=== PATIENT | male | born 1980 | race African-American/Black ===

== ENCOUNTER 2021-09-16 17:08 | Emergency (ER) | payer SELFPAY ==
[~2021-09-16] VITALS: Ht 182.9 cm; Wt 77.1 kg
--- NOTE | 2021-09-16 17:09 | NUR ---
AYUSH TEIXEIRA VIA GURNEY TO BED 02.
[2021-09-16 17:15] VITALS: BP 150/90
[2021-09-16] MEDS ORDERED: NACL 0.9% 1,000 ML IV ONE (17:20)
--- NOTE | 2021-09-16 18:20 | NUR ---
41 Y/O MALE BIBA. PT IS HOMELESS FOUND ON [address] AND [address] ON THE FLOOR. PT REFUSES TO ANSWER QUESTIONS, BELIEVED TO BE ALOC. UNKNOWN PT BASELINE. UNKOWN LAST WELL. VSS. PMH: UNABLE TO OBTAIN MEDS: UNABLE TO OBTAIN NKA
--- NOTE | 2021-09-16 18:42 | NUR ---
PT TAKEN TO CT VIA MIKE
--- NOTE | 2021-09-16 19:20 | NUR ---
Pt report given to RUDI MACKENZIE. Transfer of care at this time.
[2021-09-16 20:02] LABS: BASOPHILS # (AUTO) 0.1 K/uL (0.00-0.22); BASOPHILS % (AUTO) 0.7 % (0.0-2.0); EOSINOPHILS % (AUTO) 0.7 % (0.0-4.0); HEMATOCRIT 45.4 % (36-52); HEMOGLOBIN 14.9 g/dL (12.0-18.0); LYMPHOCYTES # (AUTO) 0.9 K/uL (2.0-11.5); LYMPHOCYTES % (AUTO) 13.4 % (20.5-51.1); MEAN CORPUSCULAR HEMOGLOBIN 28 pg (27-31); MEAN CORPUSCULAR HGB CONC 33 g/dL (33-37); MEAN CORPUSCULAR VOLUME 83.6 fL (80-94); MONOCYTES # (AUTO) 0.6 K/uL (0.8-1.0); MONOCYTES % (AUTO) 9.3 % (1.7-9.3); NEUTROPHILS # (AUTO) 5.2 K/uL (1.8-7.7); NEUTROPHILS % (AUTO) 75.9 % (42.2-75.2); PLATELET COUNT (AUTO) 280 K/uL (140-450); RED BLOOD CELL COUNT(AUTO) 5.43 MIL/uL (4.20-6.10); RED CELL DISTRIBUTION WIDTH 15.3 % (11.6-13.7); WHITE BLOOD COUNT (AUTO) 6.9 K/uL (4.8-10.8)
[2021-09-16 20:21] LABS: ALBUMIN 3.3 g/dL (3.4-5.0); ANION GAP 10.9 (8-16); CARBON DIOXIDE 28.7 mmol/L (21-32); CREATININE 1.1 mg/dL (0.6-1.3); POTASSIUM 3.6 mmol/L (3.5-5.1); TOTAL BILIRUBIN 0.4 mg/dL (0.0-1.0)
--- NOTE | 2021-09-17 02:58 | NUR ---
iv removed. pt refusing to answer questions. pt sleeping comfortably in bed
[2021-09-17 05:33] VITALS: BP 136/78
--- NOTE | 2021-09-17 05:33 | NUR ---
Patient discharged with v/s stable. Written and verbal after care instructions given and explained. Patient verbalized understanding. Ambulatory with steady gait. All questions addressed prior to discharge. Advised to follow up with PMD. A/OX4, VSS, AMBULATORY, UNLABORED BREATHING. HOMELESS PACKET AND RESOURCES PROVIDED. PT GIVEN FOOD. CLOTHING ADEQUATE.
--- NOTE | 2021-09-17 06:05 | NUR ---
PT ESCORTED TO LOBBY BY SECURITY. PT GIVEN FOOD AND DRINK. [facility] ARRANGED FOR PT TRANSPORTATION TO "[facility]" IN [place].
== END 2021-09-17 05:33 | disposition home or self-care (01) ==
LOC: MED 17:08
DX: E86.0 Dehydration (principal); D17.0 Benign lipomatous neoplasm of skin and subcutaneous tissue of head, face and neck; Z59.00 Homelessness unspecified
CPT/HCPCS: 36415; 70450; 80053; 85025; 96360; 99285; J7030